=== PATIENT | female | born 1980 | race Caucasian/White ===

== ENCOUNTER → 2016-12-25 | Outpatient (CLI) | payer OTHER | END | disposition home or self-care (01) | LOC: RD 15:31 | DX: R05 Cough (principal) | CPT/HCPCS: Q0092 ==

== ENCOUNTER → 2017-10-29 | Outpatient (CLI) | payer OTHER | END | disposition home or self-care (01) | LOC: RD 16:05 | DX: M75.21 Bicipital tendinitis, right shoulder (principal) ==

== ENCOUNTER → 2018-01-08 | Outpatient (CLI) | payer OTHER | END | disposition home or self-care (01) | LOC: MI 15:40 | PROC: BP39ZZZ Magnetic Resonance Imaging (MRI) of Left Shoulder (ICD-10-PCS; principal; 2018-01-08) | DX: M25.512 Pain in left shoulder (principal) ==

== ENCOUNTER → 2018-04-10 | Outpatient (CLI) | payer OTHER | END | disposition home or self-care (01) | LOC: MI 04-09 12:30 | PROC: BR30ZZZ Magnetic Resonance Imaging (MRI) of Cervical Spine (ICD-10-PCS; principal; 2018-04-10) | DX: G56.01 Carpal tunnel syndrome, right upper limb (principal); G56.02 Carpal tunnel syndrome, left upper limb; G56.21 Lesion of ulnar nerve, right upper limb; G56.22 Lesion of ulnar nerve, left upper limb ==

== ENCOUNTER 2018-07-06 17:31 | Emergency (ER) | payer OTHER ==
[~2018-07-06] VITALS: Ht 165.1 cm; Wt 74.8 kg
[2018-07-06 17:39] VITALS: Ht 165.1 cm; Wt 74.8 kg
[2018-07-06 19:23] VITALS: BP 133/91
== END 2018-07-06 19:23 | disposition home or self-care (01) ==
LOC: ED 17:31
DX: S61.230A Puncture wound without foreign body of right index finger without damage to nail, initial encounter (principal); W46.0XXA Contact with hypodermic needle, initial encounter; Y93.89 Activity, other specified; Y92.89 Other specified places as the place of occurrence of the external cause; Y99.8 Other external cause status